=== PATIENT | female | born 2000 | race Two or more races ===

== ENCOUNTER 2024-01-29 01:30 | Emergency (ER) | payer SELFPAY ==
[2024-01-29 01:41] VITALS: RESP 20; TEMP 98.5; BMI 44.9
[2024-01-29] MEDS ORDERED: FAMOTIDINE 20 MG TABLET ONE (02:43)
[2024-01-29] MEDS ORDERED: MAG HYDROX/AL HYDROX/SIMETH 30 ML UNIT-DOSE CUP ONE (02:43)
[2024-01-29] MEDS: MAG HYDROX/AL HYDROX/SIMETH -MYLANTA- ORAL SUSPENSION PO ONE (02:58)
[2024-01-29] MEDS: FAMOTIDINE 20 MG TABLET PO ONE (02:58)
[2024-01-29 03:03] LABS: BASO % 0.6 % (0-2.0); EOS % 1.3 % (0-4.5); HEMATOCRIT 44.1 % (32.4-45.2); HEMOGLOBIN 15.2 GM/dL (10.7-15.3); LYMPH % 28.6 % (8-40); MCH 29.4 pg (25.7-33.7); MCHC 34.5 g/dl (32.0-36.0); MEAN CELL VOLUME 85.3 fl (80-96); MEAN PLT VOLUME 7.9 fl (7.5-11.1); NEUT % 63.5 % (42.8-82.8); PLATELET COUNT 376 10^3/uL (134-434); RBC 5.17 M/mm3 (3.60-5.2); RDW 13.4 % (11.6-15.6); WHITE BLOOD COUNT 10.2 K/mm3 (4.0-10.0)
[2024-01-29 03:06] LABS: EPI CELLS 36 /uL (0-25.1); HYALINE CASTS 0 /uL (0-3.1); PH,URINE 6.5 (5.0-8.0); URINE APPEARANCE CLEAR; URINE BACTERIA 523 /uL (0-1359); URINE BILIRUBIN NEGATIVE (NEGATIVE); URINE COLOR YELLOW; URINE GLUCOSE (UA) NEGATIVE (NEGATIVE); URINE KETONE NEGATIVE (NEGATIVE); URINE LEUK ESTERASE TRACE (NEGATIVE); URINE NITRITE NEGATIVE (NEGATIVE); URINE PROTEIN NEGATIVE (NEGATIVE); URINE RBC 35 /uL (0-23.9); URINE UROBILINOGEN 0.2 mg/dL (0.2-1.0); URINE WBC 15 /uL (0-25.8)
[2024-01-29 03:23] LABS: CHLORIDE 107 mmol/L (98-107); POTASSIUM 4.3 mmol/L (3.5-5.1); SODIUM 138 mmol/L (136-145)
[2024-01-29 03:26] LABS: ALBUMIN 4.2 g/dl (3.4-5.0); ANION GAP 7 mmol/L (4-13); BLOOD UREA NITROGEN 11.1 mg/dL (7-18); CALCIUM 9.3 mg/dL (8.5-10.1); CO2 24 mmol/L (21-32); GLUCOSE,RANDOM 95 mg/dL (74-106)
[2024-01-29 03:29] LABS: SGOT/AST 25 U/L (15-37); SGPT/ALT 23 U/L (13-61)
[2024-01-29 03:30] LABS: CREATININE 0.8 mg/dL (0.55-1.3)
[2024-01-29 03:31] LABS: BILIRUBIN,TOTAL 0.3 mg/dL (0.2-1); TOT PROT 8.6 g/dl (6.4-8.2)
[2024-01-29 03:32] LABS: ALK PHOS 78 U/L (45-117)
[2024-01-29] MEDS: SODIUM CHLORIDE 0.9% 500 ML INFUS.BAG IV ONE (03:42)
[2024-01-29 04:22] VITALS: BP 137/87; PULSE 103
== END 2024-01-29 04:31 | disposition home or self-care (01) ==
LOC: JER 01:30
DX: R00.2 Palpitations (principal); R06.02 Shortness of breath; R10.84 Generalized abdominal pain; R42 Dizziness and giddiness
CPT/HCPCS: 36415; 71046-TC-FY; 80053; 81003; 82550; 82553; 84439; 84443; 84484; 84703; 85025; 87086; 93005; 93010; 99285-25

== ENCOUNTER 2024-11-19 02:34 | Emergency (ER) | payer OTHER ==
[2024-11-19 02:40] VITALS: BP 129/110; RESP 20; TEMP 98.8; BMI 42.0
[2024-11-19] MEDS: SODIUM CHLORIDE 0.9% 500 ML INFUS.BAG IV ONE (03:50)
[2024-11-19 04:26] VITALS: PULSE 95
[2024-11-19 04:26] LABS: ABSOLUTE IMMATURE GRANULOCYTES 0.02 x10^3/uL (0.0-0.031); BASOPHILS # 0.02 x10^3/uL (0.01-0.08); EOSINOPHIL % 0.6 % (0.7-5.8); EOSINOPHILS # 0.06 x10^3/uL (0.04-0.36); HEMATOCRIT 40.7 % (34.1-44.9); HEMOGLOBIN 13.5 g/dL (11.2-15.7); MCHC 33.2 g/dl (32.2-35.5); MEAN PLT VOLUME 9.6 fl (9.4-12.3); MONOCYTE # 0.34 x10^3/uL (0.24-0.86); MONOCYTE % 3.7 % (4.7-12.5); PLATELET COUNT 318 x10^3/uL (182-369); RDW 11.8 % (12.1-16.5)
[2024-11-19 04:48] LABS: CALCIUM 9.8 mg/dL (8.5-10.1)
[2024-11-19 04:49] LABS: ALBUMIN 3.8 g/dl (3.4-5.0); BLOOD UREA NITROGEN 15.5 mg/dL (7-18); MAGNESIUM 1.9 mg/dL (1.8-2.4)
[2024-11-19 04:52] LABS: CREATININE 0.8 mg/dL (0.55-1.3)
[2024-11-19 04:54] LABS: BILIRUBIN,TOTAL 0.2 mg/dL (0.2-1); TOT PROT 7.4 g/dl (6.4-8.2)
== END 2024-11-19 05:35 | disposition home or self-care (01) ==
LOC: JER 02:34
DX: R00.2 Palpitations (principal); R03.0 Elevated blood-pressure reading, without diagnosis of hypertension; R00.0 Tachycardia, unspecified; M62.838 Other muscle spasm
CPT/HCPCS: 0241U-QW; 36415; 71045-TC-FY; 80053; 83735; 84439; 84443; 84484; 84703; 85025; 85379; 93005; 93010; 99285-25

== ENCOUNTER 2024-11-21 20:36 | Emergency (ER) | payer OTHER ==
[2024-11-21 20:51] VITALS: TEMP 98.8; BMI 42.0
[2024-11-21] MEDS ORDERED: METOCLOPRAMIDE HCL 10 MG TABLET (FP) PO ONE (22:28)
[2024-11-21] MEDS ORDERED: ACETAMINOPHEN INJECTION 100 ML ONE (22:28)
[2024-11-21] MEDS: ACETAMINOPHEN 1000 MG/100 ML BAG IVPB ONE (22:43)
[2024-11-21] MEDS: METOCLOPRAMIDE HCL 10 MG TABLET (FP) PO ONE (22:43)
[2024-11-21] MEDS: SODIUM CHLORIDE 1,000 ML IV STA (22:43)
[2024-11-21 22:46] LABS: HEMATOCRIT 41.8 % (34.1-44.9); HEMOGLOBIN 14.1 g/dL (11.2-15.7); MCHC 33.7 g/dl (32.2-35.5); MEAN PLT VOLUME 9.4 fl (9.4-12.3); PLATELET COUNT 327 x10^3/uL (182-369); RDW 11.5 % (12.1-16.5)
[2024-11-21 23:05] LABS: POTASSIUM 4.2 mmol/L (3.5-5.1)
[2024-11-21 23:07] LABS: CALCIUM 9.9 mg/dL (8.5-10.1)
[2024-11-21 23:08] LABS: ALBUMIN 3.9 g/dl (3.4-5.0); BLOOD UREA NITROGEN 10.1 mg/dL (7-18)
[2024-11-21 23:11] LABS: CREATININE 0.8 mg/dL (0.55-1.3)
[2024-11-21 23:13] LABS: BILIRUBIN,TOTAL 0.3 mg/dL (0.2-1); TOT PROT 7.9 g/dl (6.4-8.2)
[2024-11-22 00:26] VITALS: BP 119/90; PULSE 82; RESP 14
== END 2024-11-22 00:25 | disposition home or self-care (01) ==
LOC: JER 20:36
PROC: 3E033NZ Introduction of Analgesics, Hypnotics, Sedatives into Peripheral Vein, Percutaneous Approach (ICD-10-PCS; principal; 2024-11-21)
PROC: 3E0337Z Introduction of Electrolytic and Water Balance Substance into Peripheral Vein, Percutaneous Approach (ICD-10-PCS; 2024-11-21)
DX: R00.2 Palpitations (principal); R11.0 Nausea; F41.9 Anxiety disorder, unspecified; R42 Dizziness and giddiness; R25.2 Cramp and spasm
CPT/HCPCS: 36415; 80053; 82550; 82553; 85027; 93005; 93010; 99284-25; J0131